=== PATIENT | female | born 1970 | race Caucasian/White ===

== ENCOUNTER 2017-07-30 15:18 | Emergency (ER) | payer BC, OTHER ==
--- NOTE | 2017-07-30 16:40 | EDM.PDOC ---
ED HPI GENERAL MEDICAL PROBLEM - General Chief Complaint: Headache Stated Complaint: MIGRAINE HAS LASTED 5 DAYS Time Seen by Provider: 07/30/17 16:22 Source of Information: Reports: Patient, Family, RN Notes Reviewed History Limitations: Reports: No Limitations - History of Present Illness INITIAL COMMENTS - FREE TEXT/NARRATIVE: 46-year-old female presents to the emergency department day complaint of headache, she states she has no history of migraine she's had this headache for the last 5 days it does wax and wane she describes a sudden onset with emesis and incontinence as well as phonophobia. She is very reluctant to any treatments has been trying to use homeotherapy with peppermint oil with minimal success - Related Data Allergies Allergy/AdvReac Type Severity Reaction Status Date / Time amoxicillin Allergy Rash Verified 07/30/17 16:42 Past Medical History Endocrine/Metabolic History: Reports: Other (See Below) Other Endocrine/Metabolic History: THyriod problems. - Past Surgical History Cardiovascular Surgical History: Reports: Vascular Surgery Social & Family History - Tobacco Use Smoking Status *Q: Never Smoker - Caffeine Use Caffeine Use: Reports: Coffee - Recreational Drug Use Recreational Drug Use: No ED ROS GENERAL - Review of Systems Review Of Systems: See Below Constitutional: Denies: Fever, Chills HEENT: Reports: Ear Pain Respiratory: Reports: No Symptoms Cardiovascular: Reports: No Symptoms GI/Abdominal: Reports: Nausea, Vomiting Neurological: Reports: Headache - Physical Exam Exam: See Below Exam Limited By: No Limitations General Appearance: Alert, Mild Distress Eye Exam: Bilateral Eye: EOMI, Normal Fundi, Normal Inspection, PERRL Head Exam: Atraumatic, Normocephalic Neck: Normal Inspection, Supple, Non-Tender, Full Range of Motion Respiratory/Chest: No Respiratory Distress, Lungs Clear, Normal Breath Sounds, No Accessory Muscle Use Cardiovascular: Regular Rate, Rhythm, No Murmur GI/Abdominal: Soft, Non-Tender Course - Vital Signs Last Recorded V/S: Last Vital Signs Temp 98.2 F 07/30/17 15:43 Pulse 69 07/30/17 15:43 Resp 16 07/30/17 17:04 BP 130/78 07/30/17 17:04 Pulse Ox 98 07/30/17 17:04 - Orders/Labs/Meds Orders: Active Orders 24 hr Category Date Time Status Peripheral IV Care [RC] . DIRECTED Care 07/30/17 16:36 Active Sodium Chloride 0.9% [Saline Flush] Med 07/30/17 16:36 Active 10 ml FLUSH ASDIRECTED PRN Peripheral IV Insertion Adult [OM.PC] Urgent Oth 07/30/17 16:36 Ordered Medication Orders Sodium Chloride (Saline Flush) 10 ml FLUSH ASDIRECTED PRN PRN Reason: Keep Vein Open Last Admin: 07/30/17 17:00 Dose: 10 ml Meds: Medications Generic Name Dose Route Start Last Admin Trade Name Freq PRN Reason Stop Dose Admin Sodium Chloride 10 ml 07/30/17 16:36 07/30/17 17:00 Saline Flush FLUSH 10 ml ASDIRECTED PRN Administration Keep Vein Open Discontinued Medications Generic Name Dose Route Start Last Admin Trade Name Freq PRN Reason Stop Dose Admin Diphenhydramine HCl 25 mg 07/30/17 16:36 07/30/17 16:56 Benadryl IVPUSH 07/30/17 16:37 25 mg ONETIME ONE Administration Lactated Ringer's 1,000 mls @ 999 mls/hr 07/30/17 16:36 07/30/17 16:58 Ringers, Lactated IV 07/30/17 17:36 999 mls/hr BOLUS ONE Administration Ketorolac Tromethamine 30 mg 07/30/17 16:36 07/30/17 16:56 Toradol IVPUSH 07/30/17 16:37 30 mg ONETIME ONE Administration Lorazepam 1 mg 07/30/17 17:20 07/30/17 17:25 Ativan IVPUSH 07/30/17 17:21 1 mg ONETIME ONE Administration Prochlorperazine Edisylate 5 mg 07/30/17 16:36 07/30/17 17:29 Compazine IVPUSH 07/30/17 16:37 Not Given ONETIME ONE Departure - Departure Time of Disposition: 18:14 Disposition: Home, Self-Care 01 Condition: Good Clinical Impression: Head ache Qualifiers: Headache type: unspecified Headache chronicity pattern: acute headache Intractability: not intractable Qualified Code(s): R51 - Headache - Discharge Information Referrals: PCP,None [Primary Care Provider] - Forms: ED Department Discharge Additional Instructions: Continue to use ibuprofen or Tylenol as needed for pain control, Please followup with your primary care provider in 3-5 days if not better, please call return to the emergency department with worsening of symptoms. - My Orders Last 24 Hours: My Active Orders 07/30/17 16:36 Peripheral IV Care [RC] . DIRECTED Sodium Chloride 0.9% [Saline Flush] 10 ml FLUSH ASDIRECTED PRN Peripheral IV Insertion Adult [OM.PC] Urgent - Assessment/Plan Last 24 Hours: My Active Orders 07/30/17 16:36 Peripheral IV Care [RC] . DIRECTED Sodium Chloride 0.9% [Saline Flush] 10 ml FLUSH ASDIRECTED PRN Peripheral IV Insertion Adult [OM.PC] Urgent Plan: Assessment Acuity = acute Site and laterality = headache probable migraine Etiology = unclear etiology Manifestations = nausea and phonophobia Location of injury = Home Lab values = none Plan She had good relief with combination Toradol, Compazine, Benadryl and Ativan vascular follow-up with her primary care the next 3-5 days for reevaluation and pursue a migraine workup This note was dictated using [employer] voice recognition software please call with any questions on syntax or grammar.
[2017-07-30] MEDS: Ketorolac 30 MG/ML SDV IVPUSH ONE (16:56)
[2017-07-30] MEDS: diphenhydrAMINE 50 MG/ML SDV IVPUSH ONE (16:56)
[2017-07-30] MEDS: Lactated Ringers 1,000 ML IV ONE (16:58)
[2017-07-30] MEDS: Sodium Chloride 0.9% 10 ML Syringe FLUSH PRN (17:00)
[2017-07-30] MEDS: LORazepam 2 MG/ML SDV IVPUSH ONE (17:25)
[2017-07-30] MEDS: Prochlorperazine 10 MG/2 ML SDV IVPUSH ONE (17:29)
== END 2017-07-30 18:42 | disposition home or self-care (01) ==
LOC: JP.ED 15:18
DX: R51 Headache (principal); Z88.1 Allergy status to other antibiotic agents
CPT/HCPCS: 96361; 96374; 96375; 99283; J1200; J1885; J2060; J7050; J7120

== ENCOUNTER 2017-07-31 03:00 | Emergency (ER) | payer OTHER ==
[2017-07-31] MEDS ORDERED: Ketorolac 30 MG/ML SDV IVPUSH ONE (03:44)
[2017-07-31] MEDS ORDERED: Prochlorperazine 10 MG/2 ML SDV IVPUSH ONE (03:44)
[2017-07-31] MEDS ORDERED: diphenhydrAMINE 50 MG/ML SDV IVPUSH ONE (03:52)
--- NOTE | 2017-07-31 04:05 | EDM.PDOC ---
ED HPI GENERAL MEDICAL PROBLEM - General Chief Complaint: Headache Stated Complaint: MEDICAL Time Seen by Provider: 07/31/17 03:25 Source of Information: Reports: Patient, Family History Limitations: Reports: No Limitations - History of Present Illness INITIAL COMMENTS - FREE TEXT/NARRATIVE: 46-year-old female who was in earlier with a headache who responded well to the medication's back because the headache is very bad again. She has nausea but no vomiting, photophobia, the head is global and pounding. It started 4 days ago after she had a phone conversation that was very stressful. Onset: Sudden Duration: Day(s): Location: Reports: Head Severity: Severe Improves with: Reports: Other (Medication used earlier almost completely resolved the headache) Associated Symptoms: Reports: Headaches, Malaise, Nausea/Vomiting, Other ( Photophobia). Denies: Confusion, Chest Pain, Cough headache Pain Score (Numeric/FACES): 9 - Related Data Allergies Allergy/AdvReac Type Severity Reaction Status Date / Time amoxicillin Allergy Rash Verified 07/31/17 03:06 Home Meds: Home Meds NK [No Known Home Meds] 07/31/17 [History] Past Medical History [employer] History: Reports: Endocrine/Metabolic History: Reports: Other (See Below) Other Endocrine/Metabolic History: THyriod problems. - Past Surgical History Cardiovascular Surgical History: Reports: Vascular Surgery Social & Family History - Tobacco Use Smoking Status *Q: Never Smoker - Caffeine Use Caffeine Use: Reports: None - Recreational Drug Use Recreational Drug Use: No ED ROS GENERAL - Review of Systems Review Of Systems: See Below Constitutional: Reports: Malaise. Denies: Fever, Chills HEENT: Denies: Vision Change Respiratory: Denies: Shortness of Breath Cardiovascular: Denies: Chest Pain GI/Abdominal: Reports: Nausea. Denies: Vomiting : Reports: No Symptoms Musculoskeletal: Reports: No Symptoms Skin: Reports: No Symptoms Neurological: Reports: Headache Psychiatric: Reports: No Symptoms - Physical Exam Exam: See Below Exam Limited By: No Limitations General Appearance: Alert, Moderate Distress Eye Exam: Bilateral Eye: PERRL Head Exam: Atraumatic Neck: Supple Respiratory/Chest: No Respiratory Distress Neuro Exam (Abbreviated): Alert, Oriented, No Motor/Sensory Deficits Psychiatric: Flat Affect Skin Exam: Warm, Dry Course - Vital Signs Last Recorded V/S: Last Vital Signs Temp 97.7 F 07/31/17 05:05 Pulse 82 07/31/17 05:46 Resp 14 07/31/17 05:46 BP 114/57 L 07/31/17 05:46 Pulse Ox 95 07/31/17 05:46 - Orders/Labs/Meds Orders: Active Orders 24 hr Category Date Time Status Head wo Cont [CT] Stat Exams 07/31/17 03:18 Taken Meds: Medications Discontinued Medications Generic Name Dose Route Start Last Admin Trade Name Janice PRN Reason Stop Dose Admin Diphenhydramine HCl 25 mg 07/31/17 03:52 07/31/17 03:57 Benadryl IVPUSH 07/31/17 03:53 25 mg ONETIME ONE Administration Levetiracetam 500 mg/ Sodium 105 mls @ 400 mls/hr 07/31/17 04:49 07/31/17 04: 55 Chloride IV 07/31/17 05:03 400 mls/hr ONETIME ONE Administration Ketorolac Tromethamine 30 mg 07/31/17 03:44 07/31/17 03:49 Toradol IVPUSH 07/31/17 03:45 30 mg ONETIME ONE Administration Lorazepam 1 mg 07/31/17 04:30 07/31/17 04:42 Ativan IVPUSH 07/31/17 04:31 1 mg ONETIME ONE Administration Prochlorperazine Edisylate 5 mg 07/31/17 03:44 07/31/17 03:57 Compazine IVPUSH 07/31/17 03:45 Not Given ONETIME ONE - Re-Assessments/Exams Free Text/Narrative Re-Assessment/Exam: 07/31/17 04:[address] without contrast was done which unfortunately showed a small amount of subarachnoid hemorrhage of the vertex on the left side. She had already been given Toradol and Benadryl, Ativan was added. 07/31/17 04:55 After discussing her condition with neurosurgery, acceptance was given by the hospitalist service to transfer the patient. A loading dose of Keppra was advised, patient was given 500 mg of IV Keppra. Ambulance transfer was recommended that the family insisted going by private car, with symptoms ongoing for the last 5 days this is likely reasonable. They're going directly to [facility] for direct admission. Departure - Departure Time of Disposition: 05:50 Disposition: DC/Tfer to Other 70 Condition: Fair Clinical Impression: Subarachnoid hemorrhage Head ache Qualifiers: Headache type: unspecified Headache chronicity pattern: acute headache Intractability: not intractable Qualified Code(s): R51 - Headache - Discharge Information Referrals: PCP,None [Primary Care Provider] - Forms: ED Department Discharge Care Plan Goals: Go directly to [facility] for direct admission. - My Orders Last 24 Hours: My Active Orders 07/31/17 03:18 Head wo Cont [CT] Stat - Assessment/Plan Last 24 Hours: My Active Orders 07/31/17 03:18 Head wo Cont [CT] Stat
[2017-07-31] MEDS ORDERED: LORazepam 2 MG/ML SDV IVPUSH ONE (04:30)
[2017-07-31] MEDS ORDERED: levETIRAcetam 500 MG in Sodium Chloride 0.9% 100 ML IV ONE (04:49)
== END 2017-07-31 06:44 | disposition other institution (70) ==
LOC: JP.ED 03:00
DX: I60.9 Nontraumatic subarachnoid hemorrhage, unspecified (principal); Z88.1 Allergy status to other antibiotic agents
CPT/HCPCS: 70450; 96374; 96375; 99285; J1200; J1885; J1953; J2060; J7030

== ENCOUNTER 2022-03-03 13:43 | Emergency (ER) | payer MEDICAID, OTHER, SELFPAY ==
[2022-03-03] MEDS ORDERED: LORazepam 0.5 MG Tab PO ONE (15:13)
== END 2022-03-03 15:32 | disposition home or self-care (01) ==
LOC: JP.ED 13:43
DX: R42 Dizziness and giddiness (principal); Z88.0 Allergy status to penicillin
CPT/HCPCS: 99282; 99283